=== PATIENT | male | born 1945 | race Caucasian/White ===

== ENCOUNTER 2024-09-09 10:09 | Outpatient (AMB) | payer MEDICARE, SELFPAY ==
--- OUTSIDE RECORDS SUMMARY | 2020-12-26 20:00 | XMS_ITS | Continuity of Care Document ---
Author Organization [facility] Address [address] [place] [phone] Phone Care Team Providers Care Cold Type Artist Name Role Phone Liebetreu OD, Emre Unavailable Unavailable Allergies, Adverse Reactions, Alerts Substance Reaction Status Criticality No Known Drug Allergies Active No I nformation Advance Directives Directive Yes / No Effective Date File Name No Information Encounters Encounter Description Practice Location Reason(s) For Visit Diagnoses Date Provider Providers Copied on Encounter [facility], [address] [place] [address], [id number] , [place] tel:[phone] [facility] [address] [facility] Type 2 diabetes mellitus without complicationsAge-rel ated nuclear cataract, bilateralDry eye syndrome of bilateral lacrimal glandsPresbyopiaRegu lar astigmatism, bilateralHypermetrop ia, bilateral Nov-0 1 Liebetreu Emre. [address] [place], [address], [place]. tel:[phone] Family History Family Member Type Diagnosis Age At Onset Problem (finding) Family history unknown Payers Payer name Insurance type Covered democrat ID Authoriza tion(s) No Information Social History Type Description Quantity Date Captured Comments Alcohol Use Details Unknown Caffeine Use Details Unknown Tobacco Use Status Never smoker (Never Smoked) Smoking Status Never smoker (Never Smoked) Non-Smoking Tobacco Use Details : No Details Available : No Details Available Sex Male Chief Complaint And Reason For Visit No Information Reason For Referral Reason For Referral No Information History Of Present Illness Encounter Date Complaint History Of Prese nt Illness No Information Functional Status Date Functional Assessmen t No Information Instructions Date Instruction Additional Infor jarek Impression/Plan Related to The p atient has dry eye syndrome or keratoconjunctivitis sicca. The tear glands of the eye are producing a low volume or low quality of tear. Resulting symptoms include burning, itching, redness, foreign body sensation, dryness, mucus discharge, and refl Impression/Plan Related to Ophth almic examination at this time shows no evidence of diabetic eye disease. I have discussed the importance of regular follow-up examinations for the early detection of diabetic retinopathy to prevent vision loss. I have recommended re-evaluation in o Impression/Plan Related to The p atient is experiencing some vision loss due to cataracts. Explained to the patient that there is moderate clouding of the natural lens in the eye, causing some degradation in their vision. 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 Impression/Plan Related to Refra ctive testing reveals astigmatism. Impression/Plan Related to Refra ctive testing reveals presbyopia. Assessments Type Assessment Date No Information Patient Care Teams Name Effective Dates (start - stop) Status Members No Information
--- NOTE | 2024-09-09 10:32 | A.OFFVIS_ITS ---
Vital Signs 09/09/24 10:34 Weight 197 lb BP 110/60 Blood Pressure Location Rt brachial Position Sitting Pulse 60 Pulse Source Pulse Oximeter Pulse Oximetry (%) 96 Oxygen Delivery Method Room Air Intake Visit Reasons: ENP- Parkinson's Intake Note: NPV Parkinson's Accompanied by: Spouse Allergies carbidopa lev Allergy (Severe, Uncoded 09/09/24 10:36) Hallucinations Medication List - Last Reconciled 09/09/24 by Marcelina Amaro MD atorvastatin (Lipitor) 10 mg PO DAILY celecoxib 100 mg PO BID lisinopril 10 mg PO DAILY polyethylene glycol 3350(bulk) (Base B, Polyethylene Glycol 3350 granules) ea miscellaneous quetiapine 25 mg PO TID sildenafil (Viagra) 50 mg PO DAILY PRN HPI Comments Details: 78y/o Right Handed male comes for further management of Parkinsons disease and psyhcosis. He was diagnosed in 2019 after a TAINA scan . His initial symptoms were tremors in his Right hand which started 2 years prior to that. He was in [place] at that time - he was trialed on Carbidopa/levodopa - but had difficulty tolerating- nausea, dizziness etc. He stopped carbidopa/levodopa 32 1/2 years . he was trialed on low dose last isamar but he developed fully formed visual hallucinations. His motor symptoms of parkinsons are mild He has snoring , frequent arousals due to nocturia , has mild sleep talking Cognition- OK Mood- mild intermittent depression and irritability He is very motivated . He goes to gym everyday . Speech- mild slurring Saliva- normal Handwriting- smaller and slower Using utensils- has trouble eating salad but others are good Dressing- good Shower- good He has mild difficulty changing positions in bed GAit- improved No recent falls He has severe constipation-miralax helps Urination- nocturia, urgency Dizziness- none No nausea Hallucinations- none now since he started on quetiapine. He reports some tingling in his feet at bedtime - better with movement. [facility] Medical History Hallucinations Parkinson's disease Social History Household Members: Spouse Physical Exam Vital Signs: Last Vital Signs Pulse 60 09/09/24 10:34 BP 110/60 09/09/24 10:34 Pulse Ox 96 09/09/24 10:34 Oxygen Delivery Method Room Air 09/09/24 10:34 Neuro Other: mild decreased facial expression and blink Right Ue rets tremors mild to moderate amplitude No postural or action tremors Very mild decreased FFM Nocog whee rigidty Gait - good posture, good strid e, mild slowness while turning , decreased arm swing on the right Deep tendon reflexes (DTR's): Right triceps reflex intensity grade: 2+, Left triceps reflex intensity grade: 2+, Rt Biceps (C5, C6): 2+, Left biceps reflex intensity grade: 2+, Right brachioradialis reflex intensity grade: 2+, Left brachioradialis reflex intensity grade: 2+, Right patellar reflex intensity grade: 2+ and Left patellar reflex intensity grade: 2+ Assessment & Plan Assessment & Plan (1) Parkinson's disease: Comment: slowly porgressing , tremor predominant Code(s): G20.A1 - Parkinson's disease without dyskinesia, without mention of fluctuations Category: Medical Qualifiers: Dyskinesia presence: without dyskinesia Fluctuating manifestations: without fluctuating manifestations Qualified Code(s): G20.A1 - Parkinson's disease without dyskinesia, without mention of fluctuations (2) Hallucinations: Code(s): R44.3 - Hallucinations, unspecified Category: Medical Plan His tremors and bradykinesia are mild and manageable. I suggested clinical follow up continue exercise Restart Boxing Continue quetiapine 25 mg 1 qam and 2 tabs qhs - plan to taper to 1/2 qam 2 tabs qhs then stop am dose and continue 50mg qhs Suggested magnesium 25-400mg qhs Coding Level of Care Code Est Pt Level 4 (13368) Complex EM visit Add On G2211 Diagnoses Parkinson's disease without dyskinesia or fluctuating manifestations G20.A1 Dyskinesia presence: without dyskinesia Fluctuating manifestations: without fluctuating manifestations Hallucinations R44.3
[2024-09-09 10:34] VITALS: BP 110/60; PULSE 60; O2SAT 96
--- OUTSIDE RECORDS SUMMARY | 2024-09-09 10:35 | XMS_ITS | Data Portability ---
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 Plan of Treatment Reminders Order Date Submit Date Provider Last Modified By Organization Details Last Modified Time Details Appointments None recorded. Lab PSA, serum or plasma 2021 [facility], [address] [place], [address], 08:00:04 microalbum in/creatin ine, ratio panel, urine 2021 [facility], [address] [place], [address], 08:48:43 HbA1c (hemoglobi n A1c), blood 2021 [facility], [address], [place], [address], 08:48:42 CBC w/ auto diff 2021 [facility], [address], [place], [address], 08:48:43 urinalysis , complete 2021 [facility], [address], [place], [address], 08:48:44 CMP, serum or plasma 2021 [facility], [address], [place], [address], 08:48:43 venipunctu re 2021 [facility], [address], [place], [address], 08:48:35 TSH, serum or plasma 2021 [facility], [address], [place], [address], 08:48:36 lipid panel, serum 2021 022 [facility], [address], [place], [address], 08:48:42 PSA, serum or plasma 2020 [facility], [address], [place], [address], 07:04:57 HbA1c (hemoglobi n A1c), blood 2020 021 [facility], [address], [place], [address], 1 11:38:14 CMP, serum or plasma 2020 021 [facility], [address], [place], [address], 1 11:38:13 venipunctu re 2020 021 [facility], [address], [place], [address], 1 11:38:14 lipid panel, serum 2020 021 [facility], [address], [place], [address], 1 11:38:13 microalbum in/creatin ine, ratio panel, urine 2020 021 [facility], [address], [place], [address], 14:02:34 HbA1c (hemoglobi n A1c), blood 2020 021 [facility], [address], [place], [address], 14:02:38 magnesium, serum or plasma 2020 021 [facility], [address], [place], [address], 09:35:25 TSH, serum or plasma 2020 021 [facility], [address], [place], [address], 14:02:39 lipid panel, serum 2020 021 [facility], [address], [place], [address], 1 14:02:34 PSA, serum or plasma 2020 021 [facility], [address], [place], [address], 1 14:02:39 CBC w/ auto diff 2020 021 [facility], [address], [place], [address], 1 14:02:33 urinalysis , complete 2020 021 [facility], [address], [place], [address], 1 14:02:34 CMP, serum or plasma 2020 021 [facility], [address], [place], [address], 1 14:02:39 venipunctu re 2020 021 [facility], [address], [place], [address], 1 14:02:33 HbA1c (hemoglobi n A1c), blood 2019 020 [facility], [address], [place], [address], 0 08:35:20 CMP, serum or plasma 2019 020 [facility], [address], [place], [address], 0 08:35:32 venipunctu re 2019 020 [facility], [address] [place], [address], 0 08:35:32 lipid panel, serum 2019 020 [facility], [address] [place], [address], 0 08:35:20 Referral None recorded. Procedures None recorded. Surgeries None recorded. Imaging None recorded. Medication Orders lisinopril 5 mg tablet 2021 022 [facility], [address], [address], [place], [place], [id number], 2 08:48:53 atorvastat in 10 mg tablet 2021 022 [facility], [address], [address], [place], [place], [id number], 2 03:30:47 sildenafil 50 mg tablet 2020 021 [facility], [address] [place], [address], 1 11:28:58 atorvastat in 10 mg tablet 2020 021 [facility], [address], [address], [place], [place], [id number], 1 14:02:26 benazepril 5 mg tablet 2020 021 [email or web address] [address] [facility], [address], [address], [place], [place], [id number], 2 08:31:42 benazepril 5 mg tablet 2019 020 [facility], [address], [facility] [address], [place], [place], [id number], 2 08:31:42 lorazepam 0.5 mg tablet 2019 020 [id number], [address], [place], [place], [id number], 2 08:36:00 sildenafil (pulmonary hypertensi on) 20 mg tablet 2019 020 [facility], [address] [place] [address], [address], 2 08:16:06 Patient TargetsNo targets recorded. Patient Instructions Encounter Date Encounter Id Patient Instructions Last Modified By Organization Details Last Modified Time 09/08/2019 [id number] starting a weigh t loss plan: care instructions Not available 09/08/2019 08:35:15 gastroesophageal reflux disease (GERD): care instructions Not available 09/08/2019 08:35:15 high cholesterol : care instructions Not available 09/08/2019 08:35:15 Decrease benazep ril 5 mg daily Otherwise, continue present management Blood test and follow up in 6 months Please call immediately for any new or worsening symptoms, or for any questions or concerns [email or web address] Not available 09/08/2019 08:37:40 05/12/2020 [id number] starting a weigh t loss plan: care instructions Not available 05/12/2020 14:02:23 gastroesophageal reflux disease (GERD): care instructions Not available 05/12/2020 14:02:24 Continue present management Obtain Shingrix shingles vaccine at pharmacy Blood test and follow up in 6 months Please call immediately for any new or worsening symptoms, or for any questions or concerns [email or web address] Not available 05/12/2020 14:07:28 11/13/2020 [id number] Vaccine Consent form Tevin holloway 11/13/2020 11:23:24 starting a weigh t loss plan: care instructions Not available 11/13/2020 11:23:24 gastroesophageal reflux disease (GERD): care instructions Not available 11/13/2020 11:23:24 Change sildenafi l to 50 mg daily as needed Otherwise, continue present management Flu shot today Blood test and follow up in 6 months Please call immediately for any new or worsening symptoms, or for any questions or concerns eri Not available 11/13/2020 11:31:41 05/22/2021 [id number] starting a weigh t loss plan: care instructions Not available 05/22/2021 08:48:30 gastroesophageal reflux disease (GERD): care instructions Not available 05/22/2021 08:48:31 high cholesterol : care instructions efrain Not available 05/22/2021 08:48:31 Stop aspirin Change from benazepril to lisinopril once daily Otherwise, continue present management Obtain Shingrix shingles vaccine at pharmacy Blood test and follow up in 6 months Please call immediately for any new or worsening symptoms, or for any questions or concerns janina Not available 05/22/2021 08:55:19 10/31/2021 [id number] Vaccine Consent form eri Not sarmad holloway 10/31/2021 12:05:54 starting a weigh t loss plan: care instructions [email or web address] Not available 10/31/2021 12:05:54 gastroesophageal reflux disease (GERD): care instructions Not available 10/31/2021 12:05:54 high cholesterol : care instructions Not available 10/31/2021 12:05:54 Continue present management Flu shot today Obtain COVID booster at pharmacy, as we discussed Establish care with a new primary doctor and neurologist in [place] See a urologist in [place] [facility] regarding the elevated PSA [email or web address] Not available 10/31/2021 12:11:56 Reason for Referral None Reported. Results Created Date Observation Date Name Description Value Unit Range Abnormal Flag Note LastModifiedBy Organization Detail LastModifiedTime 10/27/19 22 10/26/2021 HbA1c (hemo globi n A1c), blood A1C 5.6 Not Available Not Availa ble 02/14/2022 08:45:26 10/07/19 20 10/07/2019 imagi ng/di agnos tic resul t No observ ation record ed. Radiology [place] [address], [place], [address], 05/12/2020 13:40:45 Result Notes None recorded. Problems Name Problem SNOMED Code Status Onset Date Resolution Date Notes Provider Name and Address Organization Details Recorded Time Subclini jose hypothyr oidism 22248165 Completed 201805/04/2018 no tx/asymp tomatic; TSH 4.59 on 04/19/16, 4.00 on 10/24/16, 3.86 on 06/30/17, 2. Alena Azul MD [address] [address], [place], [address] , [facility], [facility] 9 10:46:32 Osteoart hritis 052969430 Active 2018 c/w rare ibuprofe n; s/p knee injectio ns from Dr. Bernstein & Dr. Mcintosh; s/p PT through Dr. Soares; mild, diffuse joint pains, particul claire his R knee, back & neck Not Available [facility] 3 11:05:18 Anxiety disorder 454388403 Active 2018 c/w clonazep am 0.5 mg - 1 mg qhs prn, no AEs Not Available [facility] 3 11:05:18 History of polyp of colon 380555030 Active 2018 3 polyps on 07/31/11 [place], ? path; no polyps 01/07/14 ; TA resected 04/26/19, for 5 year f/u with Dr. Foster Not Available [facility] 3 11:05:18 Gastroes ophageal reflux disease 518529415 Active 2018 c/w Prilosec OTC 20 mg qd prn, no AEs; cimetidi ne & famotidi ne ineffect abhijeet; prior Nexium; no prior EGD Not Available [facility] 3 11:05:18 Impotenc e Active 2018 c/w Viagra 50 mg qd prn, no AEs Not Available [facility] 3 11:05:18 Hyperlip idemia 08938806 Active 2018 on atorvast atin 10 mg qd & CoQ 10, no AEs; LDL 62 on 10/26/21 Not Available [facility] 3 11:05:18 Diabetes mellitus 75982537 Active 2018 c/w diet; A1c 6.0% on 08/23/19, 5.6% on 05/03/20, 5.6% on 11/07/20, 5.8% on 05/17/21, 5.6% on 10/26/21; urine m/c neg 10/26/21; ophtho 12/27/20 Not Available [facility] 3 11:05:18 Essentia l hyperten lakisha 30245477 Active 2018 on lisinopr il 5 mg qd, no AEs Not Available [facility] 3 11:05:18 Allergic rhinitis 74222637 Active 2019 no tx required ; prior fluticas one spray Not Available [facility] 3 11:05:18 Parkinso n's disease 52865462 Active 2020 c/w Sinemet, no AEs; TAINA 10/07/19: c/w PD; sees Dr. Montesinos Not Available [facility] 3 11:05:18 Screenin g for malignan t neoplasm of prostate Active 2020 neg ACE 05/22/21; PSA 3.34 on 08/23/19, 3.92 on 11/07/20, 3.90 on 05/17/21, 4.48 on 10/26/21; pt. requests continue d monitori ng Not Available [facility] 3 11:05:18 Problem Notes None recorded. Procedures Surgical History Date Name Laterality Status Provider Name and Address Organization Details Recorded Time 05/23/19 Quality Functional Assessment completed STACIE VALDERRAMA - [facility], [facility] 05/22/2021 08:04:33 05/23/19 Quality Medication Reviewed and Updated completed [facility], [facility] 05/22/2021 08:04:33 05/23/19 22 Quality BMI with follow up completed [facility] 05/22/2021 08:04:33 05/23/19 22 Quality Advanced Care Planning completed [facility], [facility] 05/22/2021 08:04:33 05/23/19 22 Quality Incontinence Screening completed [facility], [facility] 05/22/2021 08:04:33 05/23/19 22 Medicare AWV-Screening Schedule completed Alena Azul MD [address], [place], [address], [facility], [facility] 05/22/2021 08:26:28 05/23/19 22 Quality Fall Risk Assessment completed [facility] 05/22/2021 08:04:33 12/28/19 21 Diabetic Eye exam completed [facility] 05/22/2021 08:04:12 05/13/19 21 Quality Functional Assessment completed [facility] 05/12/2020 13:18:34 05/13/19 21 Quality Fall Risk Assessment Low Risk completed [facility] 05/12/2020 13:18:34 05/13/19 21 Quality Advanced Care Planning completed [facility], [facility] 05/12/2020 13:18:34 05/13/19 21 Quality Incontinence Screening completed [facility], [facility] 05/12/2020 13:18:34 05/13/19 21 Medicare AWV-Screening Schedule completed Alena Azul MD [address], [place], [address], [facility], [facility] 05/12/2020 13:41:15 04/26/19 20 Colonoscopy completed Alena Azul MD [address], [place], [address], [facility], [facility] 06/16/2019 07:18:05 11/06/19 19 Quality Functional Assessment completed [facility] 11/05/2018 07:52:37 11/06/19 19 Quality Medication Reviewed and Updated completed [facility] 11/05/2018 07:52:37 11/06/19 19 Medicare AWV Questionnaire completed Alena Azul MD [address], [place], [address], [facility], [facility] 11/05/2018 08:23:21 11/06/19 19 Quality Fall Risk Assessment Low Risk completed [facility] 11/05/2018 07:52:37 11/06/19 19 Quality BMI with follow up completed [facility] 11/05/2018 07:52:37 11/06/19 19 Quality Advanced Care Planning completed [facility] 11/05/2018 07:52:37 11/06/19 19 Quality Incontinence Screening completed [facility] 11/05/2018 07:52:37 01/08/20 14 Colonoscopy completed Alena Azul MD [address], [place], [address], [facility] 05/04/2018 10:48:31 Imaging Results None recorded. Procedure Notes None recorded. Medical Equipment None Reported. Allergies No known drug allergies Medications Name Sig Start Date Stop Date Status Note LastModified by Organization Details LastModified Time amoxicilli n 500 mg capsule 05/04 completed Not Available Not Available Not Available sildenafil 50 mg tablet Take 1 tablet every day by oral route as needed. 2020 active Not Available Not Available Not Avai lable atorvastat in 10 mg tablet TAKE 1 TABLET BY MOUTH DAILY IN THE EVENING active Not Available Not Available No t Available benazepril 5 mg tablet Take 1 tablet every day by oral route. 05/222 completed Not Available Not Available Not Available cimetidine 400 mg tablet Take 1 tablet twice a day by oral route as needed. 09/07 completed Not Available Not Available Not Available clonazepam 1 mg tablet Take 1 tablet every day by oral route at bedtime. active Not Available Not Available No t Available prednisone 10 mg tablets in a dose pack 05/04 completed Not Available Not Available Not Available famotidine 20 mg tablet Take 1 tablet twice a day by oral route. 05/12 completed Not Available Not Available Not Available lorazepam 0.5 mg tablet TAKE 1-2 TABLETS DAILY NEEDED 05/22 completed Not Available Not Available Not Available [employer] Ultra Test strips USE TO TEST ONCE DAILY 2020 active Not Available Not Available Not Avai lable lisinopril 5 mg tablet TAKE 1 TABLET BY MOUTH DAILY active Not Available Not Available No t Available ibuprofen 600 mg tablet Take 1 tablet 3 times a day by oral route as needed for 30 days. 06/15 completed Not Available Not Available Not Available carbidopa 25 mg-levodop a 100 mg tablet Take 2 tablets 3 times a day by oral route. active Not Available Not Available No t Available benazepril 10 mg tablet Take 1 tablet every day by oral route in the morning. 05/12 completed Not Available Not Available Not Available fluticason e propionate 50 mcg/actuat ion nasal spray,susp ension [place] 1 spray every day by intranasa l route. 11/13 completed Not Available Not Available Not Available lycopene 10 mg capsule Take 2 capsules every day by oral route. active Not Available Not Available No t Available Prilosec OTC 20 mg tablet,del ayed release Take 1 tablet every day by oral route as needed. active Not Available Not Available No t Available sildenafil (pulmonary hypertensi on) 20 mg tablet Take 2-5 tabs po qd prn sexual activity 05/22 completed Not Available Not Available Not Available Miralax as needed active Not Available Not Av ailable Not Available multivitam in mens complete daily active Not Available Not Available No t Available CoQ-10 400 mg QD active Not Available Not Susan ilable Not Available Adult Aspirin Regimen 81 mg tablet,del ayed release Take 1 tablet every day by oral route. 05/22 completed Not Available Not Available Not Available OneTouch Ultra Blue Test Strip TEST ONCE DAILY dx e11.9 2019 active tests 1 x week Not Available Not Available Not Available Fluzone High-Dose 9348-5660 (PF) 180 mcg/0.5 mL intramuscu lar syringe TO BE ADMINISTE RED BY PHARMACIS T FOR IMMUNIZAT ION 05/04 completed Not Available Not Available Not Available Centrum Chewables 8 mg iron-400 mcg-10 mcg tablet Take 1 tablet every day by oral route. 05/12 completed Not Available Not Available Not Available OneTouch Delica Plus Lancet 30 gauge USE UTD D active Not Available Not Available No t Available Vitals Date Recorded Body height Body mass index (BMI) Body weight Body temperature Heart rate Oxygen saturation Oxygen saturation in Arterial blood by Pulse oximetry Systolic And Diastolic Provider Name and Address Organization Details Last Updated DateTime 1 185.42 cm 25.4 kg/m2 02942.1 7 g 98.2 [degF] 50 /min 99 % 99 % 120/70 mm[Hg] Beti Agudelo [facility], [facility] 1 13:30:24 Date Recorded Body height Body mass index (BMI) Body weight Body temperature Heart rate Oxygen saturation Oxygen saturation in Arterial blood by Pulse oximetry Systolic And Diastolic Provider Name and Address Organization Details Last Updated DateTime 2 185.42 cm 25.2 kg/m2 73608.1 4 g 97.6 [degF] 60 /min 98 % 98 % 106/72 mm[Hg] STACIE RAMIREZ [facility], [facility] 2 08:13:51 Date Recorded Body height Body mass index (BMI) Body weight Body temperature Heart rate Oxygen saturation Oxygen saturation in Arterial blood by Pulse oximetry Systolic And Diastolic Provider Name and Address Organization Details Last Updated DateTime 0 185.42 cm 25.6 kg/m2 80721.2 g 98.2 [degF] 58 /min 98 % 98 % 110/72 mm[Hg] Beti Agudelo [facility], [facility] 0 07:47:21 Date Recorded Body height Body mass index (BMI) Body weight Oxygen saturation Oxygen saturation in Arterial blood by Pulse oximetry Heart rate Body temperature Systolic And Diastolic Provider Name and Address Organization Details Last Updated DateTime 2 185.42 cm 25.1 kg/m2 91784.5 5 g 98 % 98 % 52 /min 97.6 [degF] 116/70 mm[Hg] Yola Apolinar [facility], [facility] 2 11:43:33 Date Recorded Body height Body mass index (BMI) Body weight Body temperature Heart rate Oxygen saturation Oxygen saturation in Arterial blood by Pulse oximetry Systolic And Diastolic Provider Name and Address Organization Details Last Updated DateTime 1 185.42 cm 25.2 kg/m2 45032.1 4 g 97.8 [degF] 47 /min 98 % 98 % 120/72 mm[Hg] STACIE RAMIREZ [facility] 1 11:04:19 Social History Question Answer Notes LastModified by Organizat ion Details LastModified Time Tobacco Smoking Status [facility] 10:34:54 Do You Have An Advance Directive? Yes Information n ot available 11/05/2018 Is Blood Transfusion Acceptable In An Emergency? Yes [email or web address] Information not available 10/31/2021 What Is Your Level Of Caffeine Consumption? None [email or web address] Information not available 10/31/2021 How Much Tobacco Do You Chew? None Information not available 05/04/2018 In The 14 Days Before Symptom Onset, Have You Had Close Contact With A Laboratory-confirm ed COVID-19 While That Case Was Ill? No [email or web address] Information n ot available 10/31/2021 In The 14 Days Before Symptom Onset, Have You Had Close Contact With A Person Who Is Under Investigation For COVID-19 While That Person Was Ill? No [email or web address] Information not available 10/31/2021 Have You Been To An Area Known To Be High Risk For COVID-19? No [email or web address] Information not available 10/31/2021 What Type Of Diet Are You Following? REGULAR Information n ot available 05/22/2021 Which Illicit Or Recreational Drugs Have You Used? No [email or web address] Information not available 10/31/2021 Education 2 Year College [email or web address] Information not available 10/31/2021 Alcohol Use 1-2 Per Day Information not available 05/04/2018 Do You Smoke? No Information not available 05/22/2021 Marital Status Informatio n not available 05/04/2018 Do You Have A Medical Power Of Jig And Fixture Builder? Yes [email or web address] Information not available 10/31/2021 What Was The Date Of Your Most Recent Tobacco Screening? 10/31/2021 Information not available 10/31/2021 Do You Use Protection During Sex? Always Information not available 10/31/2021 What Is Your Relationship Status? [email or web address] Information not available 10/31/2021 Do You Use Your Seat Belt Or Car Seat Routinely? Yes [email or web address] Information not available 10/31/2021 Are You Sexually Active? Yes Information not available 10/31/2021 Has Tobacco Cessation Counseling Been Provided? No [email or web address] Information not available 10/31/2021 Sex: Male Functional Status Question Answer Note LastModified by Organizat ion Details LastModified Time Do you use any illicit or recreational drugs? No [email or web address] Information not available 10/31/2021 Do you or have you ever used any other forms of tobacco or nicotine? No [email or web address] Information not available 10/31/2021 What is your level of alcohol consumption? Occasional Information not available 05/04/2018 Do you or have you ever used smokeless tobacco? Never used [email or web address] tobacco Information not available 11/05/2018 Are you currently employed? No [email or web address] Information not available 10/31/2021 What is your occupation? retired Information not available 05/04/2018 Do you or have you ever used e-cigarettes or vape? Never used electronic cigarettes Information not available 11/05/2018 What is your exercise level? Moderate Information not available 11/05/2018 Mental Status None recorded. Family History Relationship Description Onset Age of this Age Resolved Age Notes LastModified by Organization Details LastModified Time Mother Hypertensive disorder [email or web address] Not available 2018 10:45:00 Mother Alzheimer's disease [email or web address] Not available 2018 10:46:04 Father Heart disease [email or web address] Not available 2018 10:45:12 Father Myocardial infarction [email or web address] Not available 05/04 10:45:21 Father Smoker [email or web address] Not available 08:00:09 Sister Hypertensive disorder [email or web address] Not available 2018 10:45:54 Notes:Mother (biol.) - Has F amily History of HTN - Entered On: 03/15/2014 Father (biol.) - Has Family History of Heart Disease - Entered On: 03/15/2014 Brother (full) - Has Family History of Seizures - Entered On: 03/15/2014 Sister (full) - Has Family History of Allergies - Entered On: 03/15/2014 General Comments - FH: Father at 49 from [place] Mother, 94, Alzheimer's Brother and 2 sisters, one with HTN, one with epilepsy 2 sons, healthy Medical History Condition Response Memory Loss/Alzheimer's N High blood pressure N Cancer (location) N Other N Emphysema/COPD N Alcohol Overuse N Sexually Transmitted Disease N Depression N Anemia N Urinary Problems N Colon Polyps Y Parkinson's Y Headaches/Migraines N Diabetes N Arthritis Y Heart disease / Heart Attack N Anxiety/Stress N Asthma N Crohn's Disease N Erectile / Sexual Dysfunction Y HIV/AIDS N Seizures N Stroke/TIA N High Cholesterol N Hepatitis N GERD/Ulcer N Allergies (other than meds) N Immunizations Vaccine Type Date Status Note Provider Nam e and Address Organization Details Recorded Time Influenza, high-dose, quadrivalent, PF 2 completed Yola Jiang [facility], [facility] 11/02/2021 17:35:59 Pneumococcal conjugate PCV 13 6 completed STACIE maldonado [facility] 11/13/2020 10:51:57 pneumococcal polysaccharide PPV23 2 completed STACIE maldonado [facility] 05/22/2021 08:14:48 pneumococcal polysaccharide PPV23 8 completed STACIE maldonado [facility] 11/13/2020 10:51:57 Td(adult) unspecified formulation 3 completed STACIE JAMES null, [facility], [facility] 05/22/2021 08:14:48 Influenza, high-dose, trivalent, PF 8 completed STACIE JAMES null, [facility], [facility] 11/13/2020 10:51:57 Influenza, split virus, trivalent, preservative 3 completed STACIE JAMES null, [facility], [facility] 11/13/2020 10:51:57 zoster live 2 completed STACIE JAMES null, [facility], [facility] 11/13/2020 10:51:57 Influenza, split virus, trivalent, preservative 5 completed STACIE JAMES null, [facility], [facility] 11/13/2020 10:51:57 Influenza, high-dose, trivalent, PF 6 completed STACIE JAMES null, [facility], [facility] 11/13/2020 10:51:57 Influenza, high-dose, quadrivalent, PF 0 completed STACIE JAMES null, [facility], [facility] 05/22/2021 08:14:48 COVID-19, mRNA, LNP-S, PF, 100 mcg/0.5mL dose or 50 mcg/0.25mL dose 1 completed STACIE JAMES null, [facility], [facility] 05/22/2021 08:14:48 COVID-19, mRNA, LNP-S, PF, 100 mcg/0.5mL dose or 50 mcg/0.25mL dose 1 completed STACIE JAMES null, [facility], [facility] 05/22/2021 08:14:48 COVID-19, mRNA, LNP-S, PF, 100 mcg/0.5mL dose or 50 mcg/0.25mL dose 1 completed STACIE JAMES null, [facility], [facility] 05/22/2021 08:19:44 Influenza, MDCK, quadrivalent, PF 9 completed Not Available [employer] 03/13/2019 02:55:38 Influenza, high-dose, quadrivalent, PF 1 completed STACIE RAMIREZ [facility] [place] - [facility], [facility] 11/13/2020 11:10:20 Past Encounters Encounter ID Performer Location Encounter Start Date Encounter Closed Date Diagnosis/Indication Diagnosis SNOMED-CT Code Diagnosis ICD10 Code Diagnosis Note [id number] MD EVERTON Garvey [place] [id number] [facility] [address] [place] [address] 05/04/2018 09:21:59 05/04/2018 11:01:48 Essential hypertension 79084475 I10 Stable/con trolled. Continue present management . Hyperlipidemia 86413551 E78.5 Stable/con trolled. Continue present management . Diabetes mellitus 654792 09 E11.9 Stable/con trolled. Continue present management . Impotence 738041083 N52. 9 Stable/con trolled. Continue present management . Gastroesop hageal reflux disease 955265887 K21.9 Stable/con trolled. Continue present management . History of polyp of colon 497738697 Z86.010 Colonoscop y due later this year Anxiety disorder 1454031 06 F41.9 Stable/con trolled. Continue present management . Osteoarthritis 994916388 M19.90 Stable/con trolled. Continue present management . Increased body mass index 34054345 Z68.26 elevated BMI. Discussed diet and better therapeuti c lifestyle changes. Diet education 65964177 Z71.3 see above [id number] MD EVERTON Garvey [facility] [address] [place] [address] 11/05/2018 07:15:25 11/05/2018 08:37:45 Adult health examination 294139308 Z00.00 Annual Wellness Visit done today Influenza vaccine needed 3965327825 106 Z23 Increased body mass index 34885884 Z68.26 elevated BMI. Discussed diet and better therapeuti c lifestyle changes. Diet education 34596287 Z71.3 see above Essential hypertension 41587656 I10 Stable/con trolled. Continue present management . Hyperlipidemia 24961838 E78.5 Stable/con trolled. Continue present management . Diabetes mellitus 278749 09 E11.9 Stable/con trolled. Continue present management . Impotence 025203015 N52. 9 Stable/con trolled. Continue present management . Anxiety disorder 06 F41.9 Stable/con trolled. Continue present management . Osteoarthritis 529401297 M19.90 Stable/con trolled. Continue present management . Gastroesop hageal reflux disease 439377232 K21.9 Stable/con trolled. Continue present management . History of polyp of colon 161305631 Z86.010 Colonoscop y due later this year [id number] MD EVERTON Garvey [facility] [address] [place] [address] 06/16/2019 06:58:19 06/16/2019 07:44:01 Gastroesophageal reflux disease 689503013 K21.9 I suspect the reflux is the cause of his continued sore throat. Trial of restarting cimetidine , and monitor symptoms. Tremor 89929957 R25.1 Normal examinatio n today. Patient is concerned about Parkinson' s. I explained that it is possible that this is the very first early sign of Parkinson' s, but this is far from certain. However, given the minimal nature of the symptoms, I would not recommend any further evaluation or management at this time. Essential hypertension 92891982 I10 Stable/con trolled. Continue present management . Hyperlipidemia 46901942 E78.5 Continue atorvastat in and check lipids now Diabetes mellitus 945884 09 E11.9 Continue lifestyle management and check labs now Impotence 161128729 N52. 9 Stable/con trolled. Continue present management . Anxiety disorder F41.9 Stable/con trolled. Continue present management . Osteoarthritis 066765730 M19.90 Stable/con trolled. Continue present management . History of polyp of colon 249197901 Z86.010 Colonoscop y due 04/2024 Screening for malignant neoplasm of prostate 006313129 Z12.5 Patient requests PSA [id number] MD EVERTON Garvey [facility] [address] [place] [address] 09/08/2019 07:30:50 09/08/2019 10:05:45 Anxiety disorder F41.9 Stable/con trolled. Continue present management . Essential hypertension 04857523 I10 Blood pressure relatively low with intentiona l weight loss, lightheade dness after taking benazepril , will decrease to 5 mg daily Diabetes mellitus 215305 09 E11.9 Stable/con trolled. Continue present management . Hyperlipidemia 34022785 E78.5 Stable/con trolled. Continue present management . Impotence 249910249 N52. 9 Stable/con trolled. Continue present management . Osteoarthritis 573816613 M19.90 Stable/con trolled. Continue present management . Allergic rhinitis 668297 04 J30.9 Stable/con trolled. Continue present management . Gastroesop hageal reflux disease 139288793 K21.9 Stable/con trolled. Continue present management . Increased body mass index 43573580 Z68.25 Elevated BMI 25-25.9. Dietary restrictio ns and better therapeuti c lifestyle discussed Diet education 42975644 Z71.3 see above [id number] Alena Azul MD [facility] [address] [facility] [address] [place] [address] 05/12/2020 12:59:01 05/12/2020 16:12:36 Adult health examination 614983785 Z00.00 Annual Wellness Visit done today Hyperlipidemia 03308694 E78.5 Chronic and stable. LDL 79 on 05/04/2020. Continue atorvastat in 10 mg daily. Essential hypertension 35016378 I10 Chronic and stable. Blood pressure 120/70. Continue benazepril 5 mg daily. Increased body mass index 02664083 Z68.25 Elevated BMI 25-25.9. Dietary restrictio ns and better therapeuti c lifestyle discussed Diet education 39095882 Z71.3 see above Diabetes mellitus 756859 09 E11.9 Chronic and stable. A1c 5.6% on 05/03/2020. Continue diet and exercise. Parkinson's disease 4904 9000 G20 Chronic and stable. Mild symptoms without treatment. Monitor for worsening symptoms and continue regular follow-up with neurology Anxiety disorder F41.9 Chronic and able. Symptoms are well controlled . Continue lorazepam 0.5 to 1 mg daily as needed Osteoarthritis 447435897 M19.90 Chronic and able. Symptoms are well controlled . Continue ibuprofen as needed Allergic rhinitis 378424 04 J30.9 Chronic and able. Symptoms are well controlled . Continue fluticason e spray 1 spray per nostril daily as needed Gastroesop hageal reflux disease 888158454 K21.9 Chronic and able. Symptoms are well controlled . Continue Prilosec OTC 20 mg daily. Long-term risks including effect on memory, renal function and magnesium level reviewed. History of polyp of colon 602106774 Z86.010 Colonoscop y due 04/2024 Screening for malignant neoplasm of prostate 123702168 Z12.5 Patient requests PSA annually [id number] Alena Azul MD [facility] [address] [facility] [address] [facility] [place] [address] 11/13/2020 10:14:47 11/13/2020 11:36:54 Influenza vaccine needed 0585921343 106 Z23 Essential hypertension 14393424 I10 Chronic and stable. Blood pressure well controlled . Continue benazepril 5 mg daily. Diabetes mellitus 749188 09 E11.9 Chronic and stable. A1c 5.6%. Continue diet and exercise. Hyperlipidemia 21115198 E78.5 Chronic and stable. LDL <100. Continue atorvastat in 10 mg daily. Parkinson's disease 4904 9000 G20 Chronic and stable. Mild symptoms without treatment. Monitor for worsening symptoms and continue regular follow-up with neurology Anxiety disorder 7649032 06 F41.9 Chronic and stable. Symptoms are well controlled . Continue lorazepam 0.5 to 1 mg daily as needed Gastroesop hageal reflux disease 259230952 K21.9 Chronic and stable. Symptoms are well controlled . Continue Prilosec OTC 20 mg daily as needed History of polyp of colon 058996443 Z86.010 Colonoscop y due 04/2024 Prostate s pecific antigen above reference range 284262484 R97.20 PSA increased to 3.92, will repeat in 6 months Increased body mass index 94061560 Z68.25 Elevated BMI 25-25.9. Dietary restrictio ns and better therapeuti c lifestyle discussed Diet education 00871710 Z71.3 see above Impotence 711987127 N52. 9 Chronic and stable. Will change dosing to 50 mg daily as needed for cost and convenienc e purposes [id number] MD EVERTON Garvey [facility] [address] [address] 05/22/2021 07:59:42 05/22/2021 08:57:22 Adult health examination 884866487 Z00.00 Annual Wellness Visit done today Increased body mass index 46086997 Z68.25 Elevated BMI 25-25.9. Dietary restrictio ns and better therapeuti c lifestyle discussed Diet education 35848770 Z71.3 see above Essential hypertension 79368773 I10 Chronic and stable. Blood pressure well controlled . Change from benazepril to lisinopril 5 mg daily, for insurance formulary purposes. Diabetes mellitus 267001 09 E11.9 Chronic and stable. A1c 5.8%. Continue diet and exercise. Hyperlipidemia 11734281 E78.5 Chronic and stable. LDL <100. Continue atorvastat in 10 mg daily. Parkinson's disease 4904 9000 G20 Chronic and stable. Symptoms are well well. Continue Sinemet and follow-up with neurology Anxiety disorder 6790748 06 F41.9 Chronic and stable. Symptoms are well controlled . Continue clonazepam 0.5 to 1 mg daily as needed Gastroesop hageal reflux disease 351713460 K21.9 Chronic and stable. Symptoms are well controlled . Continue Prilosec OTC 20 mg daily as needed History of polyp of colon 909957284 Z86.010 Colonoscop y due 04/2024 Prostate s pecific antigen above reference range 920607854 R97.20 PSA stable at 3.90, will repeat in 6 months [id number] MD EVERTON Garvey [facility] [address] [facility] [address] [place] [address] 10/31/2021 11:19:46 10/31/2021 12:25:07 Influenza vaccine needed 6667329840 106 Z23 Essential hypertension 41408423 I10 Chronic and stable. Blood pressure well controlled . Continue to lisinopril 5 mg daily Diabetes mellitus 213518 09 E11.9 Chronic and stable. A1c 5.6%. Continue diet and exercise. Hyperlipidemia 84151375 E78.5 Chronic and stable. LDL <100. Continue atorvastat in 10 mg daily. Parkinson's disease 4904 9000 G20 Chronic and stable. Symptoms are well well. Continue Sinemet and follow-up with neurology Anxiety disorder 2763562 06 F41.9 Chronic and stable. Symptoms are well controlled . Continue clonazepam 0.5 to 1 mg daily as needed Osteoarthritis 637439469 M19.90 Chronic and able. Symptoms are well controlled . Continue ibuprofen as needed Gastroesop hageal reflux disease 647119928 K21.9 Chronic and stable. Symptoms are well controlled . Continue Prilosec OTC 20 mg daily as needed History of polyp of colon 508383465 Z86.010 Colonoscop y due 04/2024 Prostate s pecific antigen above reference range 336688300 R97.20 PSA increased >4, pt. advised to see in [place], [place] Increased body mass index 71069932 Z68.25 Elevated BMI 25-25.9. Dietary restrictio ns and better therapeuti c lifestyle discussed Diet education 43048492 Z71.3 see above Health Concerns Section Related Observation LastModified by Organization Detai ls LastModified Time None Recorded Concern Status LastModified by Organization Details LastModified Time None Recorded Advance Directives Directive Y: Payers Insurance Date Sequence Insurance Name Policy Number Policy Madden Covered Member ID Madden Member ID Guarantor Name 08/12/2022 1 [place] Rajeev Gillespie [id number] Rajeev Gillespie 08/12/2022 2 AARP (MEDICARE SUPPLEMENT) Rajeev Gillespie [id number] Rajeev Gillespie Notes Date Note Type Note Provider Name and Address Organization Details Recorded Time 09/08/2019 text/html The patient is a 73 yo man who presents for follow up of his chronic conditions. Please see annotations on the problems list for details of the current statuses of his chronic conditions. Taking meds as indicated, with no reported adverse effects. Takes benazepril daily for hypertension and reports feeling lightheaded when taking it. He feels much better if he skips the dose. Diabetes has been controlled through diet and exercise. Hyperlipidemia has been controlled with atorvastatin, no side effects. Erectile dysfunction is controlled with Viagra. Anxiety is controlled with occasional Lorazepam, not required every day. Arthritis is controlled with occasional ibuprofen. Allergies are controlled with fluticasone spray. Esophageal reflux is controlled with famotidine, which he has been taking twice per day. He did see an ENT specialist and had a laryngoscopy because of a chronic sore throat and was advised that esophageal reflux was the underlying cause. The sore throat has improved with the increase in famotidine. CORONAVIRUS SCREENING TOOL Fever Confirmation No Respiratory Illnesses No New / Worsened Respiratory Symptoms N/A Other New Symptoms None of the below Travel To Affected Areas No Coronavirus Diagnosis/Testing/Qu arantine None of the below Coronavirus Test Date N/A Coronavirus Test Reason N/A Contact with Coronavirus No Imported from [facility] on 09/08/2019 Alena Azul MD [address] [address], [place], [address], [facility] - [facility] [employer] [facility] 09/08/2019 08:37:54 05/12/2020 text/html Medicare Annual Wellness VisitReported bypatient.Visit type:initial Medicare Annual Wellness visit PMH/FH/Rx and Social History Review:updated EMR in appropriate tabs; other providers updated The patient is a 74 yo man who presents for follow up of his chronic conditions. Please see annotations on the problems list for details of the current statuses of his chronic conditions. No acute complaints. Taking meds as indicated, with no reported adverse effects. Since his last visit he has started seeing a neurologist who diagnosedhim with Parkinson's disease. Luckily, he does not need any medication at this time but is following with a neurologist regularly. He also found that the famotidine and cimetidine were no longer working as well for reflux. He started using Prilosec OTC and it works very well although he does require it every day. Anxiety, arthritis and allergies are well controlled with current regimen. He is also due for his initial Medicare annual wellness visit today CORONAVIRUS SCREENING TOOL Are you experiencing any NEW symptom(s) listed below that is not due to another health problem None of the below Is anyone else in your household experiencing any NEW symptoms No In the past 2 weeks did you have close contact (within 6 feet for at least 15 minutes) with someone with symptoms of COVID-19 or who tested positive for COVID-19 No In the past 2 weeks have you been tested for COVID-19 No, I have not been tested Why did you get tested? Please select all that apply N/A In the past 2 weeks has someone in your household tested positive for COVID-19 No Have you ever received a dose of COVID-19 vaccine? Yes Which vaccine product did you receive? Moderna How many doses have you received? 2 doses Imported from [facility] on 05/12/2020 ANNUAL WELLNESS VISIT QUESTIONNAIRE What is the Patient's living arrangements? Live with Spouse What type of residence does the Patient live in? Single Family Home How many stories (floors) to the Patient's residence? Single Story (1 floor) Does the Patient have smoke / CO detectors in the home? Yes Does the Patient use any of the following Respirator Machines? Nebulizer - No Oxygen - No CPAP/BiPAP - No Is the Patient able to afford his/her medications? Yes What type of transportation does the Patient use? I use my own car Has the Patient had a weight change in the past 6 months? Yes expected loss What type of diet the patient is currently following? Regular What best describes the Patient's level of Physical activity? Moderate Does the Patient use Tobacco Products? No Has the Patient seen a Dentist in the last 12 months? Yes Does the Patient always use a seat belt routinely? Yes Does the Patient use sunscreen routinely? Yes Does the Patient wear a helmet when riding a bicycle/motorcycle? Do Not Ride Is the Patient sexually active? Yes, uses safe sex practices How would the patient rate their health compared to others your age? Better How would the patient rate their health today compared to last year? Same Does the Patient have Pain? No How much urinary incontinence does the Patient experience? None Does the Patient or people around the Patient have concerns about the Patient's hearing? No Does the Patient or people around the Patient have concerns about the Patient's vision? Currently wear glasses/contacts Does the Patient use any of the following for mobility assistance? Cane - No Crutches - No Walker - No Wheelchair/Scooter - No In the past year has the Patient had concerns about balance or walking or feeling unsteady on his/her feet? No In the past year has the Patient had a fall? No Does the Patient's home have any trip hazards like throw rugs or uneven floors? No Does the Patient need assistance with Bathing/Toileting/Ea ting Bathing/Grooming - No Toileting - No Eating - No Does the Patient or the people around the Patient have concerns about his/her memory? No Does the Patient have an Advance Directive (Living Will)? Yes Colonoscopy Date 05/09/2019 PHQ Score No or Minimal depression, (0). Imported from [facility] on 05/12/2020 Alena Azul MD [address], [place], [address], [place] [employer] 05/12/2020 14:08:27 11/13/2020 text/html The patient is a 74 yo man who presents for follow up of his chronic conditions. Please see annotations on the problems list for details of the current statuses of his chronic conditions. No acute complaints. Taking meds as indicated, with no reported adverse effects. Still getting PD tremors. Not bothersome and he is not on meds yet, but will see his neurologist tomorrow. Anxiety and GERD c/w current regimen. CORONAVIRUS SCREENING TOOL Are you experiencing any NEW symptom(s) listed below that is not due to another health problem None of the below Is anyone else in your household experiencing any NEW symptoms No In the past 2 weeks did you have close contact (within 6 feet for at least 15 minutes) with someone with symptoms of COVID-19 or who tested positive for COVID-19 No In the past 2 weeks have you been tested for COVID-19 No, I have not been tested Why did you get tested? Please select all that apply N/A In the past 2 weeks has someone in your household tested positive for COVID-19 No Imported from [facility] on 11/13/2020 Alena Azul MD [address], [place], [address], [facility] 11/13/2020 11:32:11 05/22/2021 text/html Medicare Annual Wellness VisitReported bypatient.Visit type:subsequent Medicare Annual Wellness visit PMH/FH/Rx and Social History Review:updated EMR in appropriate tabs; other providers updated The patient is a 75 yo man who presents for follow up of his chronic conditions. Please see annotations on the problems list for details of the current statuses of his chronic conditions. No acute complaints. Taking meds as indicated, with no reported adverse effects. He questions whether he needs to take aspirin for preventive purposes any longer. Would also like to switch from benazepril to lisinopril for cost considerations. His neurologist has started him on Sinemet for Parkinson's and switch from lorazepam to clonazepam for anxiety/insomnia. He is also due for his Medicare annual wellness visit today. CORONAVIRUS SCREENING TOOL Are you experiencing any NEW symptom(s) listed below that is not due to another health problem None of the below Is anyone else in your household experiencing any NEW symptoms No In the past 2 weeks did you have close contact (within 6 feet for at least 15 minutes) with someone with symptoms of COVID-19 or who tested positive for COVID-19 No In the past 2 weeks have you been tested for COVID-19 No, I have not been tested Why did you get tested? Please select all that apply N/A In the past 2 weeks has someone in your household tested positive for COVID-19 No Imported from [facility] on 05/22/2021 ANNUAL WELLNESS VISIT QUESTIONNAIRE Has the patient had any change or additions to their Medical Care Team since the last visit? i.e. pharmacy, medical suppliers, doctors No What is the Patient's living arrangements? Live with Spouse What type of residence does the Patient live in? Single Family Home How many stories (floors) to the Patient's residence? Single Story (1 floor) Does the Patient have smoke / CO detectors in the home? Yes Does the Patient use any of the following Respirator Machines? Nebulizer - No Oxygen - No CPAP/BiPAP - No Is the Patient able to afford his/her medications? Yes What type of transportation does the Patient use? I use my own car Has the Patient had a weight change in the past 6 months? No What type of diet the patient is currently following? Regular What best describes the Patient's level of Physical activity? Moderate Does the Patient use Tobacco Products? No Has the Patient seen a Dentist in the last 12 months? Yes Does the Patient always use a seat belt routinely? Yes Does the Patient use sunscreen routinely? Yes Does the Patient wear a helmet when riding a bicycle/motorcycle? Do Not Ride Is the Patient sexually active? Yes, uses safe sex practices How would the patient rate their health compared to others your age? Better How would the patient rate their health today compared to last year? Same Does the Patient have Pain? No Is the patient using narcotics/opioids for pain? No Is the patient taking or using any other harmful substances? No How much urinary incontinence does the Patient experience? None Does the Patient or people around the Patient have concerns about the Patient's hearing? No Does the Patient or people around the Patient have concerns about the Patient's vision? Currently wear glasses/contacts Does the Patient use any of the following for mobility assistance? Cane - No Crutches - No Walker - No Wheelchair/Scooter - No In the past year has the Patient had concerns about balance or walking or feeling unsteady on his/her feet? No In the past year has the Patient had a fall? No STEADI Fall Risk Assessment I have fallen in the past year. - No I use or have been advised to use a cane or walker to get around safely. - No Sometimes I feel unsteady when I am walking. - No I steady myself by holding onto furniture when walking at home - No I am worried about falling. - No I need to push with my hands to stand up from a chair. - No I have some trouble stepping up onto a curb. - No I often have to dougherty to the toilet. - No I have lost some feeling in my feet. - No I take medicine that sometimes makes me feel light-headed or more tired than usual - No I take medicine to help me sleep or improve my mood. - Yes I often feel sad or depressed. - No Does the Patient's home have any trip hazards like throw rugs or uneven floors? No Does the Patient need assistance with Bathing/Toileting/Ea ting Bathing/Grooming - No Toileting - No Eating - No Does the Patient or the people around the Patient have concerns about his/her memory? No Does the Patient have an Advance Directive (Living Will)? Yes PHQ Score No or Minimal depression, (0). Imported from [facility] on 05/22/2021 Alena Azul MD [address] [facility] [address], [place], [address], [facility] - [facility], [facility] 05/22/2021 08:59:37 10/31/2021 text/html The patient is a 75 yo man who presents for follow up of his chronic conditions. Please see annotations on the problems list for details of the current statuses of his chronic conditions. No acute complaints. Taking meds as indicated, with no reported adverse effects. He is moving to [place] next week, permanently Alena Azul MD [address] [address], [place], [address], [facility] - [facility], [facility] 10/31/2021 12:12:25
--- OUTSIDE RECORDS SUMMARY | 2024-09-09 10:35 | XMS_ITS | Encounter Summary ---
Author Organization [facility] Address [address] [place] [address] Care Team Providers Care Deck Mechanic Name Role Phone [place] Disla Primary Care Provider [phone] Encounter Details Date Type Department Care Team (Late st Contact Info) Description 06/13/2022 Orders Only [facility] [address] [place] [id number] Provider, Unknown, [facility] [place] [address] Social History Tobacco Use Types Packs/Day Years Used Date Smoking Tobacco: Never Smokeless Tobacco: Never Alcohol Use Standard Drinks/Week Comments Yes 0 (1 standard drink = 0.6 oz pur e alcohol) 5 X WEEK HUSAM Sex and Gender Information Value Date Recorded Sex Assigned at Male 06/09/2022 2:34 PM EDT Legal Sex Male 11:27 AM EST Gender Identity Male 06/09/2022 2:34 PM EDT Sexual Orientation Straight 06/09/2022 2: 35 PM EDT documented as of this encounter Plan of Treatment Not on file documented as of this encounter Procedures * Due to [place] Profex law, this organization might not be sharing negative HIV tests. Procedure Name Priority Date/Time Associated Diagnosis Comments EXTERNAL NUCLEAR MEDICINE - SCANNED Routine 10/07/2019 documented in this encounter Results * Due to [place] Profex law, this organization might not be sharing negative HIV tests. * Nuclear Medicine - Scanned (10/07/2019) Anatomical Region Laterality Modality Other us Unknown Provider MD [facility] EXTERNAL RESULT PROCEDUR ES Final Result documented in this encounter Visit Diagnoses Not on filedocumented in this encounter Care Teams Deck Mechanic Relationship Specialty Start Date End Date [place] Disla PCP - General Internal Medicine 04/22/22 documented as of this encounter
--- OUTSIDE RECORDS SUMMARY | 2024-09-09 10:35 | XMS_ITS | Patient Health Record ---
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 Name Role Phone Hector Azul MD Primary Care Provider Unavail able KristinShravan Unavailable [phone] Allergies No Known Allergies Reason For Referral No Information Social History Social History Additional Details Category Social Info Options Details Migrated Social History Migrated Social History Problem Title : Alcohol Use, Problem Comment : 03/15/2019 updated on other path., Problem Status : Active,, Problem Title : Caffeine use, Problem Comment : 03/15/2019 - Drinks 1-2 cans of diet soda daily., Problem Status : Active,, Problem Title : Light alcohol use (< 2 drinks/day), Problem Comment : 03/15/2019 - Might drink 2-3 drinks per week., Problem Status : Active,, Problem Title : No drug use, Problem Status : Active,, Problem Title : Tobacco use, Problem Status : Active, Attribute Title : Never smoker Problems Problem Type SNOMED Code ICD Code Onset Dates Problem Status W/U Status Risk Notes Problem History of polyp of colon (situation) (115979535) Personal history of colonic polyps (Z86.010) Active confirmed Problem Type II diabetes mellitus without complication (274010310) Diabetes (250.00) Active confirmed Problem Pure hypercholesterolemia (969811507) Hypercholesteremia (272.0) Active confirmed Problem Colonic polyp (77396181) Colonic polyp (211.3) Active confirmed Problem History of polyp of colon (865095967) Screening Colonoscopy (Z12.11) Personal history of colonic polyps (Z86.010) Active confirmed Problem Title:Hi story of colonic polyps Plan Of Treatment No Information Insurance Providers Payer Name Payer Address Payer Phone Subscriber Number Group Number Insured Name Patient Relationship to Insured Coverage Start Date Coverage End Date [place] Medicare Part [place] [id number] [address] [address] [place] [address] [id number] Rajeev Gillespie Self - patient is the insured [facility] [employer] [id number] [address] [place] [phone] [id number] Rajeev Gillespie Self - patient is the insured [facility] [id number] [address] [address] [place], [place] [id number] Rajeev Gillespie Self - patient is the insured 9 [place] Medicare Part B [id number] [address] [address] [place] [address] [id number] Rajeev Gillespie - patient is the insured 9 Medical (General) History Surgical History Surgery Date(Month/Year) Problem Title : Appendectomy, Problem St atus : Inactive, Problem Title : Arthroscopic Knee Surgery - Right, Problem Status : Active, Problem Title : dupetryns co ntracture left hand, Problem Comment : Left- 02/2005, Right - 02/2015., Problem Status : Active,
== END 2024-09-09 11:25 | disposition home or self-care (01) ==
LOC: HO.HSMS 10:09
PROVIDERS: PCP Internal Medicine; Visit Provider Psychiatry & Neurology Neurology
DX: G20.A1 Parkinson's disease without dyskinesia, without mention of fluctuations (principal); R44.3 Hallucinations, unspecified
CPT/HCPCS: 99214; G2211

== ENCOUNTER → 2024-09-09 10:09 | Outpatient (BNVA) | payer MEDICARE, SELFPAY | PROVIDERS: PCP Internal Medicine; Visit Provider Psychiatry & Neurology Neurology | DX: G20.A1 Parkinson's disease without dyskinesia, without mention of fluctuations (principal); R44.3 Hallucinations, unspecified | CPT/HCPCS: 99212 ==